=== PATIENT | female | born 1960 | race American Indian/Alaskan Native ===

== ENCOUNTER 2017-07-19 12:04 | Emergency (ER) | payer OTHER ==
[2017-07-19 12:10] VITALS: BP 170/83
--- NOTE | 2017-07-19 12:44 | XRay Report ---
Left foot 3 views: History: Pain and swelling. Findings: There is osteopenia. Arthritic changes of the first tarsometatarsal joint , second tarsometatarsal and third tarsometatarsal joint. Arthritic changes at the distal interphalangeal joint second, third, fourth and fifth toes. No periosteal reaction or lytic lesion. No soft tissue calcification. Impression: There is osteopenia. Additional findings as detailed above.
== END 2017-07-19 14:17 | disposition left against medical advice (07) ==
LOC: ED 12:04
DX: M25.572 Pain in left ankle and joints of left foot (principal); Z53.21 Procedure and treatment not carried out due to patient leaving prior to being seen by health care provider